=== PATIENT | female | born 1985 | race African-American/Black ===

== ENCOUNTER 2021-01-03 13:51 | Emergency (ER) | payer MEDICAID ==
[~2021-01-03] VITALS: Ht 175.3 cm; Wt 82.0 kg
--- NOTE | 2021-01-03 14:19 | NUR ---
ALCIRA PA TO BEDSIDE FOR EVALUATION.
--- NOTE | 2021-01-03 14:22 | NUR ---
SOB FOR ONE WEEK WITH WORSENING OVER PAST COUPLE WEEKS. PT DENIES COUGH, FEVER/CHILLS OR OTHER SX BESIDES SOB. COVID NEG TEST WITHIN LAST WEEK. HX OF ASTHMA, USING INHALER WITHOUT RELIEF. RAN OUT OF NEBS. PT STATES SHE THINKS THIS MAY BE ANXIETY BASED. PT ATTACHED TO MONITORS. VSS. GUZMAN.
[2021-01-03] MEDS ORDERED: LORazepam 1MG TABLET PO ONE (14:30)
[2021-01-03] MEDS ORDERED: LORazepam 1MG TABLET ONE (14:32)
--- NOTE | 2021-01-03 14:39 | NUR ---
PT MEDICATED PER EMAR. VSS. FILIBERTON.
[2021-01-03 15:00] LABS: BASOPHILS % (AUTO) 1 % (0-1); EOSINOPHILS % (AUTO) 3 % (1-7); LYMPHOCYTES % (AUTO) 26 % (22-44); MEAN CORPUSCULAR HEMOGLOBIN 26.2 pg (27.0-34.8); MONOCYTES % (AUTO) 7 % (2-9); NEUTROPHILS % (AUTO) 64 % (42-75); PLATELET COUNT 207 x10^3/uL (130-400); RED BLOOD COUNT 4.41 x10^6/uL (3.82-5.3); RED CELL DISTRIBUTION WIDTH 15.7 % (9.6-15.2)
[2021-01-03 15:02] LABS: MD NO
[2021-01-03 15:11] LABS: ALBUMIN 3.7 g/dL (3.4-5.0); ANION GAP 4 mmol/L (5-15); CALCIUM 8.8 mg/dL (8.5-10.1); CHLORIDE 108 mmol/L (98-107); CREATININE 0.84 mg/dL (0.55-1.02)
[2021-01-03 15:40] VITALS: BP 113/75
== END 2021-01-03 15:50 | disposition home or self-care (01) ==
LOC: ED 15:35
DX: J45.20 Mild intermittent asthma, uncomplicated (principal); F41.1 Generalized anxiety disorder; R06.4 Hyperventilation; R06.02 Shortness of breath; R94.31 Abnormal electrocardiogram [ECG] [EKG]
CPT/HCPCS: 36415; 71045; 80048; 82040; 84703; 85025; 93005; 99285; J7512